=== PATIENT | female | born 1980 | race Hispanic/Latino ===

== ENCOUNTER 2018-02-07 17:08 | Outpatient (CLI) | payer BC ==
[2018-02-07 17:37] LABS: Mean Corpuscular HGB CONC 34.2 g/dL (32.0-36.0); Mean Corpuscular Hemoglobin 31.5 pg (27.0-31.0); Mean Corpuscular Volume 92.2 fl (81.0-99.0); Mean Platelet Volume 8.6 fL (7.4-10.4); Platelet Count 268 thou/uL (130-400); RBC Distribution Width 12.5 % (11.5-14.5); Red Blood Cell (RBC) Count 3.79 mill/uL (4.20-5.40); White Blood Cell (WBC) Count 10.1 thou/uL (4.8-10.8)
== END 2018-02-07 17:09 | disposition home or self-care (01) ==
LOC: LABBT 17:08
PROVIDERS: ATTEND Obstetrics & Gynecology
DX: Z01.812 Encounter for preprocedural laboratory examination (principal); O34.32 Maternal care for cervical incompetence, second trimester
CPT/HCPCS: 85027; 86850; 86900; 86901

== ENCOUNTER → 2018-02-08 | Day surgery (SDC) | payer BC ==
[2018-02-07 17:24] VITALS: BMI 29.9
--- NOTE | 2018-02-07 19:15 | HP ---
CHIEF COMPLAINT: Cervical incompetency. HISTORY OF PRESENT ILLNESS: Ms. Elena Ellsworth is a 37-year-old G5, P4 at 14 weeks and 6 days by LMP, consistent with a 14-week sonogram with a history of cervical incompetence requiring a cervical cerclage x3. SUBJECTIVE: The patient denies any vaginal pressure, cramping, or pain and she desires a repeat transvaginal cervical cerclage. OBSTETRICAL HISTORY: history of loss at 5 months due to cervical incompetency delivery of twins at 7-1/2 months, cerclage was also done term spontaneous vaginal delivery x2 after cervical cerclage had been placed GYNECOLOGY HISTORY: The patient recently treated for chlamydia. Denies abnormal Pap smear. PAST MEDICAL HISTORY: History of gestational diabetes. PAST SURGICAL HISTORY: 1-Cervical cerclage x3 2-appendectomy. ALLERGIES: No known drug allergies. SOCIAL HISTORY: Denies tobacco, alcohol, or drug use. OBJECTIVE: VITAL SIGNS: Stable in clinic on 02/03/2018. GENERAL: In no acute distress. CARDIOVASCULAR: Regular rate. RESPIRATORY: Unlabored. ABDOMEN: Soft, nontender. IMAGING: Official Sonogram at [facility] on 02/06/2018 is consistent with LMP, 14 weeks and 3 days with positive cardiac activity and a cervical length of 4.78 cm with no funneling or dynamic change. LABORATORY DATA: Blood type is O positive, antibody screen negative, RPR negative, HIV negative, hepatitis B negative, rubella immune. Hemoglobin is 12 , hematocrit is 36.8. Pap was normal. Gonorrhea and chlamydia: Negative gonorrhea and positive chlamydia (test of cure pending). NIPT pending. ASSESSMENT: 1. A 37-year-old G5, P4 at 14 weeks and 6 days. 2. History of cervical incompetency. 3. Advanced maternal age. PLAN: The patient was counseled on options of serial cervical length versus a repeat transvaginal cervical cerclage. She has had success with the transvaginal cervical cerclage in the past and desires to have a repeat cerclage. All risks, benefits, and alternatives, and indications were reviewed with the patient and the patient also understands that her NIPT testing is still pending; however, due to gestational age, a history indicated cerclage was recommended to be done (recommended from 13-14 weeks, presented to me 14w1d ) at this point as her NIPT testing result will take approximately 1 more week and patient agrees with proceeding with the procedure. VARSHA
[~2018-02-08] MED LIST: Bupivacaine 0.75% W/DEXTROSE 8.25% 2 ML AMP ONE; Fentanyl 250 MCG/5 ML VIAL ONE; Lidocaine 1% (PF) 30 ML VIAL ONE
--- NOTE | 2018-02-08 13:34 | OP ---
PREOPERATIVE DIAGNOSES: 1. A 14-week 6-day intrauterine . 2. History of cervical incompetence, requiring cervical cerclage x3. 3. Advanced maternal age. POSTOPERATIVE DIAGNOSES: 1. A 14-week 6-day intrauterine . 2. History of cervical incompetence, requiring cervical cerclage x3. 3. Advanced maternal age. PROCEDURE: Transvaginal Joe cervical cerclage. SURGEON: Mel Mendosa D.O. COMPLICATIONS: None. ESTIMATED BLOOD LOSS: Minimal. IV FLUIDS: 600 mL of crystalloid. URINE OUTPUT: 75 mL of clear urine. FINDINGS: Normal-appearing external genitalia. Normal vaginal and cervical epithelium. Cervix with evidence of prior cerclage placement and a small dimpling on the left aspect of the cervix. Cervix was closed, thick, and high after placement of cerclage. INDICATIONS FOR THE PROCEDURE: Ms. Elena Ellsworth is a 37-year-old G5, P4 at 14 weeks and 6 days, who presented to the clinic at 14 weeks and 1 day with a history of requiring 3 prior cervical cerclages for cervical incompetence. PROCEDURE IN DETAIL: Prior to being brought to the operating room, heart tones were assessed to be 145. Patient was then brought to the operating room and placed under spinal anesthesia. The anesthesia was assessed and proven to be adequate. She was placed on dorsal lithotomy position using candy cane stirrups. She was prepped and draped in the sterile fashion and a straight catheterization was performed. An official time out was done. A weighted speculum was placed in the posterior aspect of the vagina, and the anterior aspect of the vagina was retracted using a Alan. The anterior and posterior aspects of the cervix were grasped using ring forceps. The prior cervical cerclage site was noted approximately 3-4 cm above the point in the external os. The Joe cerclage was performed in a circumferential fashion, using Mersilene tape at the prior cerclage site. The Mersilene tape was secured and tied at the 12 o'clock position. All instruments were removed from the vagina and there were no complications. All counts are correct x2. Patient was transferred to PACU in stable condition. [facility]
== END ==
LOC: SDC 10:01
PROVIDERS: ATTEND Obstetrics & Gynecology
PROC: 0UVC7ZZ Restriction of Cervix, Via Natural or Artificial Opening (ICD-10-PCS; principal; 2018-02-08)
DX: O34.32 Maternal care for cervical incompetence, second trimester (principal); O09.522 Supervision of elderly multigravida, second trimester; Z3A.14 14 weeks gestation of pregnancy; Z79.899 Other long term (current) drug therapy; Z98.890 Other specified postprocedural states; Z86.32 Personal history of gestational diabetes
CPT/HCPCS: J2001; J3010; J3490

== ENCOUNTER 2018-07-03 20:10 | Day surgery (SDC) | payer BC ==
[2018-07-03 21:16] VITALS: BMI 31.1
--- NOTE | 2018-07-03 22:18 | SS ---
LABOR AND DELIVERY TRIAGE NOTE DATE OF EVALUATION: 07/03/2018 REGULAR PHYSICIAN: [facility], Dr. Francesca Martinez. EVALUATING PHYSICIAN: Amadeo Aceves M.D. CHIEF COMPLAINT: Pelvic pressure. HISTORY OF PRESENT ILLNESS: Ms. Tyrone Diaz is a 37-year-old G5 , P4, with an estimated date of confinement of 08/03/2018, who presents complaining of pelvic pressure. Of note is the fact that her care has been complicated by history of deliveries for which she required a cerclage earlier this . At the present time, she denies rupture of membranes or vaginal bleeding. PAST OBSTETRICAL HISTORY: Includes a 20-week loss, a delivery in 2000 of a 38- week vaginal delivery, twins delivered at 32 weeks in 2002, and a 38-week that was delivered in 2014. All were vaginal deliveries. PAST MEDICAL HISTORY: Unremarkable. PAST SURGICAL HISTORY: Appendectomy, placement of cerclage x3. CURRENT MEDICATIONS: vitamins. ALLERGIES: No known allergies. SOCIAL HISTORY: Denies tobacco, alcohol, or drug use. FAMILY HISTORY: Unremarkable. REVIEW OF SYSTEMS: Denies vaginal bleeding, ruptured membranes, nausea, vomiting, fever or chills. PHYSICAL EXAMINATION: VITAL SIGNS: Stable. She is afebrile in triage tonight. ABDOMEN: Soft and nontender. No palpable contractions are noted. On vaginal exam, the cerclage is palpated. The cervix is closed and soft, but approximately 50% effaced. The vertex is presenting and it is noted high in the lower uterine segment. heart rate tracing is stable. No regular contractions are seen. ASSESSMENT: 1. A 35 and 4/7 week intrauterine . 2. Cerclage in place. 3. No evidence of active labor at this time. PLAN: The patient will be allowed to go home. She was given complete labor precautions and is told to return for contractions, ruptured membranes or vaginal bleeding. Her daughter was used as an basket braider and she voiced understanding of all the instructions. VARSHA
== END 2018-07-03 21:46 | disposition home or self-care (01) ==
LOC: L&D/OP 20:10
PROVIDERS: ATTEND Student in an Organized Health Care Education/Training Program
DX: O99.89 Other specified diseases and conditions complicating pregnancy, childbirth and the puerperium (principal); R10.2 Pelvic and perineal pain; Z3A.35 35 weeks gestation of pregnancy
CPT/HCPCS: 99282

== ENCOUNTER 2021-10-02 16:51 | Outpatient (CLI) | payer BC ==
[2021-10-03 14:29] LABS: SARS-CoV-2 PCR by NAA Not Detected (NotDetected)
== END 2021-10-02 16:52 | disposition home or self-care (01) ==
LOC: LABBT 16:51
PROVIDERS: ATTEND Obstetrics & Gynecology
DX: Z01.812 Encounter for preprocedural laboratory examination (principal); Z20.822 Contact with and (suspected) exposure to COVID-19
CPT/HCPCS: U0003; U0005

== ENCOUNTER 2021-12-07 15:42 | Outpatient (CLI) | payer BC | END 2021-12-07 15:43 | disposition home or self-care (01) | LOC: BICULT 15:42 | PROVIDERS: ATTEND Family Medicine | DX: O09.522 Supervision of elderly multigravida, second trimester (principal); Z3A.23 23 weeks gestation of pregnancy; O32.2XX0 Maternal care for transverse and oblique lie, not applicable or unspecified; O99.891 Other specified diseases and conditions complicating pregnancy; N13.30 Unspecified hydronephrosis | CPT/HCPCS: 76805 ==